=== PATIENT | male | born 1930 | race Two or more races ===

== ENCOUNTER 2019-08-07 14:22 | Inpatient (IN) | payer MEDICARE, OTHER ==
[~2019-08-07] VITALS: Ht 162.6 cm; Wt 67.7 kg
--- NOTE | 2019-08-07 20:40 | NUR ---
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 He was admitted to [facility] for S/P fall and FX. Patient is now in stable condition; AAO x1 to person only. Omani and Occitan speaking; understands very little Korean. Room air, tolerating well. NO IV access. History assessment provided by the son. Vital signs are within normal limits. Physical assessment done. Skin assessment done; pictures will be taken accordingly. Fall prevention observed. Bed is in low and locked position, side rails up x2 for safety. Call light and frequently used items are within reach. Provided all needed education, including on how to use call light. Will continue to monitor and give care.
[2019-08-07] MEDS ORDERED: IBUP-1953 PO (23:23)
[2019-08-07] MEDS ORDERED: TAMS-3 PO (23:23)
[2019-08-07] MEDS ORDERED: METF-440 PO (23:23)
[2019-08-07] MEDS ORDERED: HYDR-3326 PO (23:23)
[2019-08-07] MEDS ORDERED: CITA20TA16 PO (23:23)
[2019-08-07] MEDS ORDERED: POLY17PO4 GT (23:23)
[2019-08-07] MEDS ORDERED: DILT-32 PO (23:23)
[2019-08-07] MEDS ORDERED: SITA1TAB2 PO (23:23)
[2019-08-07] MEDS ORDERED: MECL-159 PO (23:23)
[2019-08-07] MEDS ORDERED: CEFT1PIG2 IV (23:31)
[2019-08-07 23:35] VITALS: BP 132/47
--- NOTE | 2019-08-08 01:00 | NUR ---
Patient is in stable condition; all skin issues documented and pictures taken accordingly. Dr. Mathew called at around 2330 08/07/19 for medication reconciliation; said he will go ahead and do it. Will continue to monitor patient and give care.
[2019-08-08 04:00] VITALS: BP 135/53
--- NOTE | 2019-08-08 05:32 | NUR ---
Patient slept well last night; no signs and symptoms of pain or distress. All due needs met and anticipated. Will continue to monitor and endorse accordingly.
[2019-08-08 08:00] VITALS: BP 130/51
[2019-08-08] MEDS ORDERED: MECLIZINE HCL 25 MG TABLET PO PRN (10:15)
[2019-08-08] MEDS: MIRALAX 17 GM POWD.PACK GT SCH (10:50)
[2019-08-08] MEDS: TAMSULOSIN HCL 0.4 MG CAP.SR.24H PO SCH ×2 (10:51→17:47)
[2019-08-08] MEDS: METFORMIN HCL 500 MG TABLET PO SCH ×2 (10:51→17:47)
[2019-08-08] MEDS: IBUPROFEN 400 MG TABLET PO SCH (10:51)
[2019-08-08] MEDS: DILTIAZEM HCL CD 120 MG CAP.SR.24H PO SCH (10:51)
[2019-08-08] MEDS ORDERED: CEFTRIAXONE 1 G in IV DEXTROSE 5% 50 ML IV SCH (13:00)
[2019-08-08 16:00] VITALS: BP 141/59
[2019-08-08] MEDS: HYDROCODONE/APAP 5-325MG TABLET PO PRN (17:48)
[2019-08-08 20:23] VITALS: BP 117/41
--- NOTE | 2019-08-08 21:34 | NUR ---
awake alert and oriented x1-2 Confused and disoriented. Admitted for a non-displaced fracture of the left greater tuberosity. On pain management. Denies any pain at this time. Needs attended. Kept comfortable. VSS. Will monitor patient. Voiding freely.
[2019-08-09 05:48] VITALS: BP 128/47
--- NOTE | 2019-08-09 06:36 | NUR ---
slept well most of the shift. aaox 1-2 with periods of confusion at times. VSS. no complaints presented during shift. will monitor patient. fall risk maintained. Call rehman within reach. Siderails up for safety.Voiding well.
[2019-08-09] MEDS: METFORMIN HCL 500 MG TABLET PO SCH ×2 (09:07→18:05)
[2019-08-09] MEDS: TAMSULOSIN HCL 0.4 MG CAP.SR.24H PO SCH ×2 (09:08→20:20)
[2019-08-09] MEDS: HYDROCODONE/APAP 5-325MG TABLET PO PRN ×2 (09:15→18:05)
[2019-08-09 09:56] VITALS: BP 133/48
[2019-08-09] MEDS: CITALOPRAM 20 MG TABLET PO SCH (11:06)
[2019-08-09] MEDS: IBUPROFEN 400 MG TABLET PO SCH (11:06)
[2019-08-09] MEDS: DILTIAZEM HCL CD 120 MG CAP.SR.24H PO SCH (11:07)
[2019-08-09] MEDS: MIRALAX 17 GM POWD.PACK GT SCH (11:07)
[2019-08-09 16:00] VITALS: BP 141/42
[2019-08-09 19:10] VITALS: BP 130/39
--- NOTE | 2019-08-09 19:10 | NUR ---
Received patient awake in bed, stable condition; AAO x1 to person only. Kyrgyz is primary language; understands very little Mauritian, able to communicate little in Northern Irish as well. Room air, tolerating well. No IV access. Vital signs are within normal limits, no complaints of pain at the moment. Physical assessment done. Skin assessment done. Fall prevention observed. Bed is in low and locked position, side rails up x2 for safety. Call light and frequently used items are within reach. Provided all needed education, including on how to use call light. Will continue to monitor and give care.
[2019-08-10 04:15] VITALS: BP 125/62
[2019-08-10 08:37] VITALS: BP 135/43
[2019-08-10] MEDS: METFORMIN HCL 500 MG TABLET PO SCH ×2 (08:51→17:00)
[2019-08-10] MEDS: MIRALAX 17 GM POWD.PACK GT SCH (08:51)
[2019-08-10] MEDS: DILTIAZEM HCL CD 120 MG CAP.SR.24H PO SCH (08:51)
[2019-08-10] MEDS: CITALOPRAM 20 MG TABLET PO SCH (08:51)
[2019-08-10] MEDS: TAMSULOSIN HCL 0.4 MG CAP.SR.24H PO SCH ×2 (08:51→21:13)
[2019-08-10] MEDS: IBUPROFEN 400 MG TABLET PO SCH (09:46)
--- NOTE | 2019-08-10 11:00 | NUR ---
INDIVIDUALIZE OVERALL PLAN OF CARE
--- NOTE | 2019-08-10 12:57 | NUR ---
Received patient awake in bed with periods of confusion. Continent in bowel and bladder. Patient verbalize going to bathroom PRN. Unsteady gait noted. Assisted patient in the bathroom if needed. Continue therapy for strenght endurance and ambulation. tolerated well. Continue pain management PRN. not in distress. will continue monitor
[2019-08-10 15:03] VITALS: BP 132/42
--- NOTE | 2019-08-10 17:21 | NUR ---
PATIENT POOR APPETITE NOTED FROM BREAKFAST TO DINNER, DESPITE OF ENCOURAGEMENT AND ASSISITING IN FEEDING, REFUSE TO EAT MORE. MD OWEN MADE AWARE. ORDERED MEGACE 400MG DAILY. WILL CONTINUE MONITOR
[2019-08-10] MEDS ORDERED: BISACODYL 5 MG TABLET.DR PO PRN (19:30)
[2019-08-10] MEDS ORDERED: BISACODYL 10 MG SUPP.RECT RC PRN (19:30)
--- NOTE | 2019-08-10 19:35 | NUR ---
Received patient awake in bed, stable condition; AAO x1 to person only. Slovak is primary language; understands very little Afghan, able to communicate little in Luxembourger as well. Room air, tolerating well. Vital signs are within normal limits, no complaints of pain at the moment. Physical assessment done. Skin assessment done. Fall prevention observed. Bed is in low and locked position, side rails up x2 for safety. Call light and frequently used items are within reach. Provided all needed education, including on how to use call light. Will continue to monitor and give care.
[2019-08-11 07:45] LABS: BASOPHILS # (AUTO) 0.1 K/uL (0.0-8.0); BASOPHILS % (AUTO) 1.3 % (0.0-2.0); EOSINOPHILS # (AUTO) 0.2 K/uL (0.0-0.7); EOSINOPHILS % (AUTO) 2.7 % (0.0-7.0); HEMATOCRIT 26.4 % (36.7-47.1); LYMPHOCYTES # (AUTO) 1.7 K/uL (20.0-40.0); LYMPHOCYTES % (AUTO) 23.3 % (20.5-51.5); MEAN CORPUSCULAR HEMOGLOBIN 32.9 uug (23.8-33.4); MEAN CORPUSCULAR HGB CONC 34 g/dL (32.5-36.3); MEAN CORPUSCULAR VOLUME 96.4 fL (73.0-96.2); MONOCYTES # (AUTO) 0.5 K/uL (2.0-10.0); MONOCYTES % (AUTO) 6.5 % (0.0-11.0); NEUTROPHILS # (AUTO) 4.9 K/uL (1.8-8.9); NEUTROPHILS % (AUTO) 66.2 % (38.5-71.5); PLATELET COUNT (AUTO) 291 K/uL (152-348); RED BLOOD CELL COUNT(AUTO) 2.74 MIL/uL (4.06-5.63); WHITE BLOOD COUNT (AUTO) 7.4 K/uL (3.6-10.2)
[2019-08-11 08:18] VITALS: BP 124/38
[2019-08-11 08:29] LABS: BILIRUBIN,TOTAL 0.8 mg/dL (0.2-1.0); CREATININE 1.2 mg/dL (0.6-1.3); MAGNESIUM 2.5 mg/dL (1.8-2.4); PHOSPHOROUS 3.9 mg/dL (2.5-4.9); POTASSIUM 4.6 mmol/L (3.5-5.1); TOTAL PROTEIN, SERUM 5.9 g/dL (6.4-8.2)
[2019-08-11 08:55] LABS: THYROID STIMULATING HORMONE 1.479 mIU/mL (0.358-3.740)
[2019-08-11] MEDS: TAMSULOSIN HCL 0.4 MG CAP.SR.24H PO SCH ×2 (09:23→21:28)
[2019-08-11] MEDS: METFORMIN HCL 500 MG TABLET PO SCH ×2 (09:23→17:54)
[2019-08-11] MEDS: MIRALAX 17 GM POWD.PACK GT SCH (09:23)
[2019-08-11] MEDS: MEGESTROL ACETATE 400 MG/10 ML LIQUID UDC PO SCH (09:27)
[2019-08-11] MEDS: IBUPROFEN 400 MG TABLET PO SCH (09:29)
[2019-08-11] MEDS: CITALOPRAM 20 MG TABLET PO SCH (09:29)
[2019-08-11] MEDS: DILTIAZEM HCL CD 120 MG CAP.SR.24H PO SCH (09:30)
[2019-08-11] MEDS: HYDROCODONE/APAP 5-325MG TABLET PO PRN (10:42)
[2019-08-11 16:17] VITALS: BP 129/31
--- NOTE | 2019-08-11 19:12 | NUR ---
NO CHANGES NOTED DURING DAY SHIFT, PATIENT PARTICIPATED IN OT, PT, TOLERATED WELL, NO SOB,RESP EVEN NONLABORED,SKIN WARM AND DRY TO TOUCH, NO DISTRESS NOTED.
--- NOTE | 2019-08-11 19:45 | NUR ---
Sleeping during initial rounds. No s/s of pain/discomforts noted. Safety measure and afll precaution maintained. Continue care as planned.
--- NOTE | 2019-08-12 05:59 | NUR ---
Shift End Report; VS stable. No complaint presented all night. Slept well. All needs attended and met. No significant event reported throughout the night. Continue current rehab plan of care.
[2019-08-12 06:25] VITALS: BP 106/63
[2019-08-12 08:00] VITALS: BP 144/46
[2019-08-12] MEDS: MEGESTROL ACETATE 400 MG/10 ML LIQUID UDC PO SCH (08:49)
[2019-08-12] MEDS: MIRALAX 17 GM POWD.PACK GT SCH (08:49)
[2019-08-12] MEDS: CYANOCOBALAMIN 1000 MCG/ML VIAL IM SCH (08:49)
[2019-08-12] MEDS: DILTIAZEM HCL CD 120 MG CAP.SR.24H PO SCH (08:49)
[2019-08-12] MEDS: METFORMIN HCL 500 MG TABLET PO SCH ×2 (08:49→17:24)
[2019-08-12] MEDS: CITALOPRAM 20 MG TABLET PO SCH (08:49)
[2019-08-12] MEDS: IBUPROFEN 400 MG TABLET PO SCH (08:49)
[2019-08-12] MEDS: TAMSULOSIN HCL 0.4 MG CAP.SR.24H PO SCH ×2 (08:50→21:07)
--- NOTE | 2019-08-12 13:29 | NUR ---
Patient seen and examined by ULISES Gold, referred to vascular surgeon and cardio for possible IVC filter for DVT in left lower leg. Continue blood sugar monitoring. no signs of pain/discomfort noted. Stool for occult blood and cdiff collected-sent to lab. awaiting result. Continue ATB IV cefepime treatment for cellulitis. no adverse reaction noted. will continue monitor Addendum: 08/12/19 at 1351 by JUAN ANTONIO BAKER RN RN WRONG DOCUMENTION
--- NOTE | 2019-08-12 13:51 | NUR ---
Received patient sleeping in bed. Continue megace for appetite stimulant with fair effect. On fall risk precaution maintained. Continue pain management prior to therapy. Ongoing therapy for strenght and endurance. not in distress. will continue monitor
--- NOTE | 2019-08-12 15:00 | NUR ---
SCHEDULING COORDINATOR Ne and PATIENT NAVIGATOR Balbina attempted shower however pt adamantly refusing. Will re attempt as able. RN informed about pts refusal to shower.
[2019-08-12 16:11] VITALS: BP 144/46
--- NOTE | 2019-08-12 19:43 | NUR ---
Awake in bed, HOB elevated, eating chocolate at this time, family at bedside. Denies any pain/discomforts at this time. Safety measure and fall precaution maintained. Continue care as planned.
[2019-08-12 19:55] VITALS: BP 117/48
[2019-08-13 06:27] VITALS: BP 111/65
--- NOTE | 2019-08-13 06:28 | NUR ---
Shift End Report: Vs stable. Slept good. No complaint presented all night. All needs attended and met. No significant event reported all night. Continue current rehab plan of care
[2019-08-13 08:26] VITALS: BP 132/41
[2019-08-13] MEDS: METFORMIN HCL 500 MG TABLET PO SCH ×2 (08:52→17:29)
[2019-08-13] MEDS: IBUPROFEN 400 MG TABLET PO SCH (08:52)
[2019-08-13] MEDS: TAMSULOSIN HCL 0.4 MG CAP.SR.24H PO SCH ×2 (08:52→20:12)
[2019-08-13] MEDS: CITALOPRAM 20 MG TABLET PO SCH (08:52)
[2019-08-13] MEDS: DILTIAZEM HCL CD 120 MG CAP.SR.24H PO SCH (08:52)
[2019-08-13] MEDS: CYANOCOBALAMIN 1000 MCG/ML VIAL IM SCH (08:52)
[2019-08-13] MEDS: MEGESTROL ACETATE 400 MG/10 ML LIQUID UDC PO SCH (08:53)
[2019-08-13] MEDS: MIRALAX 17 GM POWD.PACK GT SCH (09:03)
--- NOTE | 2019-08-13 13:20 | NUR ---
INTERDISCIPLINARY TEAM CONFERENCE
[2019-08-13 15:37] VITALS: BP 124/30
--- NOTE | 2019-08-13 16:54 | NUR ---
Patient awake and stable during rounds. not in distress. Continue fall risk precaution and swallowing precaution maintained. Continue therapy for ambulation and ADL ability. Increase food intake observed. will continue monitor
[2019-08-13 19:08] VITALS: BP 122/35
[2019-08-14 06:12] VITALS: BP 126/51
--- NOTE | 2019-08-14 06:20 | NUR ---
Shift End Report: VS stable. Slept well. No fall/injury. All needs attended and met. Ambulatory to the BR with walker and moderate assist with slow unsteady gait. Continue current rehab plan of care.
[2019-08-14] MEDS: CYANOCOBALAMIN 1000 MCG/ML VIAL IM SCH (08:35)
[2019-08-14] MEDS: METFORMIN HCL 500 MG TABLET PO SCH ×2 (08:35→17:35)
[2019-08-14] MEDS: TAMSULOSIN HCL 0.4 MG CAP.SR.24H PO SCH ×2 (08:35→20:53)
[2019-08-14] MEDS: MIRALAX 17 GM POWD.PACK GT SCH (08:35)
[2019-08-14] MEDS: DILTIAZEM HCL CD 120 MG CAP.SR.24H PO SCH (08:36)
[2019-08-14] MEDS: CITALOPRAM 20 MG TABLET PO SCH (08:36)
[2019-08-14] MEDS: MEGESTROL ACETATE 400 MG/10 ML LIQUID UDC PO SCH (08:36)
[2019-08-14] MEDS: IBUPROFEN 400 MG TABLET PO SCH (08:36)
--- NOTE | 2019-08-14 16:10 | NUR ---
PATIENT IS ALERT, ORIENTED X 1, AMBULATOR WITH FWW, FORGETS TO USE HIS FWW, AND FORGETS TO CALL THE NURSE FOR ASSISTANCE. STILL NOTED WITH POOR APPETITE, CONVINCED TO EAT AND OFFERED DIFFERENT CHOICES. STILL REFUSED TO EAT, NO DISTRESS NOTED, NO SOB,RESP EVEN NONLABORED,SKIN WARM AND DRY TO TOUCH. PARTICIPATED IN REHAB, TOLERATED PT, OT WELL.
[2019-08-14 18:49] VITALS: BP 128/58
[2019-08-14 19:30] VITALS: BP 138/56
--- NOTE | 2019-08-14 19:45 | NUR ---
Received patient awake in bed, stable condition; AAO x1 to person only. Irish is primary language; understands very little Estonian, able to communicate little in Senegalese as well. Room air, tolerating well. Vital signs are within normal limits. Pain is 7/10 left hip, m/b facial grimace, irritability, and grasping site. Physical assessment done. Skin assessment done. Fall prevention observed. Bed is in low and locked position, side rails up x2 for safety. Call light and frequently used items are within reach. Provided all needed education, including on how to use call light. Will continue to monitor and give care.
[2019-08-14] MEDS: HYDROCODONE/APAP 5-325MG TABLET PO PRN (20:53)
--- NOTE | 2019-08-14 22:00 | NUR ---
[place] given at 2052 due to pain in the left hip - effective; no s/s of pain/irritability. Will continue to monitor and give care.
[2019-08-15 04:10] VITALS: BP 126/40
[2019-08-15 07:31] LABS: BASOPHILS # (AUTO) 0.1 K/uL (0.0-8.0); BASOPHILS % (AUTO) 0.9 % (0.0-2.0); EOSINOPHILS # (AUTO) 0.2 K/uL (0.0-0.7); EOSINOPHILS % (AUTO) 1.7 % (0.0-7.0); HEMATOCRIT 25.9 % (36.7-47.1); HEMOGLOBIN 8.7 g/dL (12.5-16.3); LYMPHOCYTES # (AUTO) 1.6 K/uL (20.0-40.0); LYMPHOCYTES % (AUTO) 16.4 % (20.5-51.5); MEAN CORPUSCULAR HEMOGLOBIN 31.6 uug (23.8-33.4); MEAN CORPUSCULAR HGB CONC 33 g/dL (32.5-36.3); MEAN CORPUSCULAR VOLUME 94.6 fL (73.0-96.2); MONOCYTES # (AUTO) 0.6 K/uL (2.0-10.0); MONOCYTES % (AUTO) 6.5 % (0.0-11.0); NEUTROPHILS # (AUTO) 7.1 K/uL (1.8-8.9); NEUTROPHILS % (AUTO) 74.5 % (38.5-71.5); PLATELET COUNT (AUTO) 319 K/uL (152-348); RED BLOOD CELL COUNT(AUTO) 2.74 MIL/uL (4.06-5.63); WHITE BLOOD COUNT (AUTO) 9.5 K/uL (3.6-10.2)
[2019-08-15 07:48] LABS: ALANINE AMINOTRANSFERASE 7 U/L (16-63); ALKALINE PHOSPHATASE 105 U/L (50-136); ASPARTATE AMINOTRANSFERASE 10 U/L (15-37); BILIRUBIN,TOTAL 0.5 mg/dL (0.2-1.0); CARBON DIOXIDE 27 mmol/L (21-32); CHLORIDE 104 mmol/L (98-107); CREATININE 1.4 mg/dL (0.6-1.3); GLUCOSE 133 mg/dL (74-106); MAGNESIUM 2.6 mg/dL (1.8-2.4); PHOSPHOROUS 4.5 mg/dL (2.5-4.9); POTASSIUM 5.3 mmol/L (3.5-5.1); TOTAL PROTEIN, SERUM 5.5 g/dL (6.4-8.2); UREA NITROGEN, BLOOD 36 mg/dL (7-18)
[2019-08-15] MEDS: TAMSULOSIN HCL 0.4 MG CAP.SR.24H PO SCH ×2 (08:50→20:43)
[2019-08-15] MEDS: MIRALAX 17 GM POWD.PACK GT SCH (08:50)
[2019-08-15] MEDS: METFORMIN HCL 500 MG TABLET PO SCH ×2 (08:50→17:33)
[2019-08-15] MEDS: CYANOCOBALAMIN 1000 MCG/ML VIAL IM SCH (08:50)
[2019-08-15] MEDS: DILTIAZEM HCL CD 120 MG CAP.SR.24H PO SCH (08:51)
[2019-08-15] MEDS: IBUPROFEN 400 MG TABLET PO SCH (08:51)
[2019-08-15] MEDS: MEGESTROL ACETATE 400 MG/10 ML LIQUID UDC PO SCH (08:53)
[2019-08-15] MEDS: CITALOPRAM 20 MG TABLET PO SCH (08:53)
--- NOTE | 2019-08-15 14:22 | NUR ---
patient is alert, oriented x1, verbally responsive, no sob, resp even nonlabored, skin warm and dry to touch, ate good breakfast. no distress noted, daughter requested to discharge patient before chrismas, will endorse accordingly
[2019-08-15] MEDS ORDERED: SODIUM POLYSTYRENE SULFONATE 15 G/60 ML LIQUID UDC PO ONE (15:00)
[2019-08-15 17:26] VITALS: BP 110/58
[2019-08-15 19:38] VITALS: BP 118/41
--- NOTE | 2019-08-16 04:59 | NUR ---
Received patient in bed. AAO x1, confused. Not in acute distress or SOB. Able to make needs known. Micronesian speaking, understands a little Swazi. On room air. Complained of pain manifested by facial grimace and irritability, Narco 5-325 mg given and effective. VS checked, stable. All due medications administered and well tolerated. Assisted him to the bathroom as needed. Fall prevention observed. Safety measures maintained. All needs attended promptly. Bed in low and lock position, alarm on, side rails up x2 for safety. Call light and frequently used items within reach. Continue to monitor and will endorse to the oncoming nurse accordingly.
[2019-08-16 07:03] VITALS: BP 141/46
[2019-08-16] MEDS: METFORMIN HCL 500 MG TABLET PO SCH ×2 (08:53→18:19)
[2019-08-16] MEDS: CYANOCOBALAMIN 1000 MCG/ML VIAL IM SCH (09:39)
[2019-08-16] MEDS: MEGESTROL ACETATE 400 MG/10 ML LIQUID UDC PO SCH (09:39)
[2019-08-16] MEDS: IBUPROFEN 400 MG TABLET PO SCH (09:39)
[2019-08-16] MEDS: CITALOPRAM 20 MG TABLET PO SCH (09:39)
[2019-08-16] MEDS: TAMSULOSIN HCL 0.4 MG CAP.SR.24H PO SCH ×2 (09:39→21:12)
[2019-08-16] MEDS: MIRALAX 17 GM POWD.PACK GT SCH (09:40)
[2019-08-16] MEDS: DILTIAZEM HCL CD 120 MG CAP.SR.24H PO SCH (10:22)
--- NOTE | 2019-08-16 19:33 | NUR ---
Patient in AAO x 1, able to express self at times. NO SOB noted. In stable condition. Vital signs within normal limits for patient. Due medications administered as ordered and scheduled. NO episodes of hypo/hyperglycemia noted. Patient monitored closely. Ambulatory with a walker and stand by assist. Patient noted with poor appetite, encouraged patient to eat during shift. Patient ate homemade food that daughter brought during shift. Pt. on PT/OT services as ordered. Assisted with ADLs, needs attended on anticipation, call light left at bed side, endorsed to next shift and will continue with care.
--- NOTE | 2019-08-16 19:35 | NUR ---
Received patient awake in bed, stable condition; AAO x1 to person only. Bulgarian is primary language; understands very little Citizen [place], able to communicate little in Mozambican as well. Room air, tolerating well. Vital signs are within normal limits. No signs or symptoms of pain. Physical assessment done. Skin assessment done. Fall prevention observed. Bed is in low and locked position, side rails up x2 for safety. Call light and frequently used items are within reach. Provided all needed education, including on how to use call light. Will continue to monitor and give care.
[2019-08-16 20:00] VITALS: BP 125/58
[2019-08-17 04:30] VITALS: BP 143/45
[2019-08-17] MEDS: CHOLECALCIFEROL 1,000 UNIT TABLET PO SCH (08:35)
[2019-08-17] MEDS: MIRALAX 17 GM POWD.PACK GT SCH (08:35)
[2019-08-17] MEDS: TAMSULOSIN HCL 0.4 MG CAP.SR.24H PO SCH ×2 (08:36→21:00)
[2019-08-17] MEDS: CYANOCOBALAMIN 1000 MCG/ML VIAL IM SCH (08:36)
[2019-08-17] MEDS: METFORMIN HCL 500 MG TABLET PO SCH ×2 (08:36→17:21)
[2019-08-17] MEDS: MEGESTROL ACETATE 400 MG/10 ML LIQUID UDC PO SCH (08:37)
[2019-08-17] MEDS: IBUPROFEN 400 MG TABLET PO SCH (08:39)
[2019-08-17] MEDS: CITALOPRAM 20 MG TABLET PO SCH (08:39)
[2019-08-17] MEDS: DILTIAZEM HCL CD 120 MG CAP.SR.24H PO SCH (08:39)
[2019-08-17 16:56] VITALS: BP 121/61
--- NOTE | 2019-08-17 18:28 | NUR ---
PATIENT IS ALERT, ORIENTED X1, NO SOB, RESP EVEN NONLABORED,SKIN WARM AND DRY TO TOUCH, NO DISTRESS NOTED, ATE GOOD PERCENTAGE OF MEALS, AMBULATORY WITH FWW WITH SUPERVISION. FORGETFUL, REORIENTED NEEDED. NEEDS ATTENDED TIMELY
[2019-08-17 19:51] VITALS: BP 115/44
--- NOTE | 2019-08-17 21:47 | NUR ---
awake alert and oriented x2-3 . resting in bed upon initial rounds. watching TV. VSS. OOB to the BR with supervision. Voiding freely. Needs attended. No complaints presented during shift. Discharge to home in am.
--- NOTE | 2019-08-18 02:08 | NUR ---
Patient so confused. Keeps on getting OOB , trying to redirect patient to stay in bed but still wanting to get out and walk. Call rehman within reach. Bed alarm on. At 1:30am patient gets up, found on the floor just outside patient's door. No injury noted. Assisted back in bed. Vital signs taken, temp 98.7 HR 69 Resp 18 BP 133/53 pulse ox 98% RA. Dr Chun Huston made aware of patient's fall. Also nursing supervisor malted milk aware of patient's fall. Will notify family in am regarding about the fall. Will monitor patient.
[2019-08-18 05:48] VITALS: BP 133/56
--- NOTE | 2019-08-18 06:04 | NUR ---
patient in and out of bed. slept at short intervals. assisted back to bed a lot of times. VSS needs attended. denies any pain nor any discomfort. will monitor patient.
[2019-08-18 07:24] LABS: BASOPHILS # (AUTO) 0.1 K/uL (0.0-8.0); BASOPHILS % (AUTO) 0.5 % (0.0-2.0); EOSINOPHILS # (AUTO) 0.1 K/uL (0.0-0.7); HEMATOCRIT 27.5 % (36.7-47.1); LYMPHOCYTES # (AUTO) 1.8 K/uL (20.0-40.0); LYMPHOCYTES % (AUTO) 13.7 % (20.5-51.5); MEAN CORPUSCULAR HEMOGLOBIN 31.8 uug (23.8-33.4); MEAN CORPUSCULAR HGB CONC 33 g/dL (32.5-36.3); MEAN CORPUSCULAR VOLUME 96.7 fL (73.0-96.2); MONOCYTES # (AUTO) 0.9 K/uL (2.0-10.0); MONOCYTES % (AUTO) 7.1 % (0.0-11.0); NEUTROPHILS % (AUTO) 77.7 % (38.5-71.5); PLATELET COUNT (AUTO) 300 K/uL (152-348); RED BLOOD CELL COUNT(AUTO) 2.84 MIL/uL (4.06-5.63); WHITE BLOOD COUNT (AUTO) 12.8 K/uL (3.6-10.2)
[2019-08-18 07:32] LABS: CARBON DIOXIDE 23 mmol/L (21-32); CHLORIDE 104 mmol/L (98-107); CREATININE 1.6 mg/dL (0.6-1.3); GLUCOSE 132 mg/dL (74-106); MAGNESIUM 2.2 mg/dL (1.8-2.4); POTASSIUM 5.2 mmol/L (3.5-5.1); UREA NITROGEN, BLOOD 43 mg/dL (7-18)
[2019-08-18] MEDS: CHOLECALCIFEROL 1,000 UNIT TABLET PO SCH (08:47)
[2019-08-18] MEDS: METFORMIN HCL 500 MG TABLET PO SCH (08:47)
[2019-08-18] MEDS: TAMSULOSIN HCL 0.4 MG CAP.SR.24H PO SCH (08:47)
[2019-08-18 08:48] VITALS: BP 142/53
[2019-08-18] MEDS: DILTIAZEM HCL CD 120 MG CAP.SR.24H PO SCH (08:48)
[2019-08-18] MEDS: MIRALAX 17 GM POWD.PACK GT SCH (08:48)
[2019-08-18] MEDS: CITALOPRAM 20 MG TABLET PO SCH (08:48)
[2019-08-18] MEDS: MEGESTROL ACETATE 400 MG/10 ML LIQUID UDC PO SCH (08:48)
[2019-08-18] MEDS: IBUPROFEN 400 MG TABLET PO SCH (08:48)
--- NOTE | 2019-08-18 13:09 | NUR ---
Received patient awake in bed. not in distress. S/P fall at night time around 130am. no change in LOC and ROM, no visible injury noted. Participates in therapy with no complaint of discomfort and pain. After therapy, patient complaint of left hip pain. MD Rose notified and ordered STAT left hip x-ray since he will be discharge soon. result came with no frature. Impression is osteoporosis. Daughter Lakesha aware.
--- NOTE | 2019-08-18 14:17 | NUR ---
Patient discharge around 2pm via private car with son and daughter. not in distress. medication prescription given to daughter, discharge summary and order discuss with daughter, verbalize understanding. Picture taken. FF UP consult instruct the daughter. History diagnosis information given. Advise on fall risk precaution.
== END 2019-08-18 14:00 | disposition home health service (06) | DRG 560 ==
PROVIDERS: ADMIT Physical Medicine & Rehabilitation Pain Medicine; ATTEND Physical Medicine & Rehabilitation Pain Medicine
DX: S72.115D Nondisplaced fracture of greater trochanter of left femur, subsequent encounter for closed fracture with routine healing (principal); G93.40 Encephalopathy, unspecified; N17.9 Acute kidney failure, unspecified; N39.0 Urinary tract infection, site not specified; E87.5 Hyperkalemia; D63.8 Anemia in other chronic diseases classified elsewhere; E11.9 Type 2 diabetes mellitus without complications; F03.90 Unspecified dementia, unspecified severity, without behavioral disturbance, psychotic disturbance, mood disturbance, and anxiety; I10 Essential (primary) hypertension; W19.XXXD Unspecified fall, subsequent encounter; E86.9 Volume depletion, unspecified; T39.395A Adverse effect of other nonsteroidal anti-inflammatory drugs [NSAID], initial encounter; Y92.230 Patient room in hospital as the place of occurrence of the external cause; F32.9 Major depressive disorder, single episode, unspecified; F41.9 Anxiety disorder, unspecified; N40.0 Benign prostatic hyperplasia without lower urinary tract symptoms; M88.9 Osteitis deformans of unspecified bone
CPT/HCPCS: 36415; 71045; 73502; 82652; 83735; 84100; 84443; 85025; A4663; J0696; J3420; J7060; J8597; J8999